=== PATIENT | female | born 1995 | race Caucasian/White ===

== ENCOUNTER 2022-06-12 18:24 | Emergency (ER) | payer OTHER ==
[~2022-06-12 18:24] MED LIST: COLACE100 MG PO; IBUPROFEN600 MG PO; NORCO 5-325 TA1 EACH PO
[2022-06-12 19:43] LABS: HEMOGLOBIN 13.4 gm/dl (12.3-15.3); RED BLOOD COUNT 4.64 M/UL (4.00-5.10); WHITE BLOOD COUNT 10.2 K/UL (4.5-11.0)
[2022-06-12 20:04] LABS: BUN/CREATININE RATIO 11 (0-10)
[2022-06-12] MEDS ORDERED: CLEOCIN HCL300 MG PO (20:48)
== END 2022-06-12 21:01 | disposition home or self-care (01) ==
LOC: ER1 18:24
PROVIDERS: Nurse Practitioner
DX: L02.31 Cutaneous abscess of buttock (principal); Z90.49 Acquired absence of other specified parts of digestive tract; R40.2410 Glasgow coma scale score 13-15, unspecified time
CPT/HCPCS: 10060; 80053; 85025; 99283